=== PATIENT | female | born 1945 | race Caucasian/White ===

== ENCOUNTER 2024-04-07 14:16 | Emergency (ER) | payer OTHER, SELFPAY ==
[2024-04-07] VITALS (15 sets, daily range): BP systolic 109–150; BP diastolic 56–82; PULSE 50–75; RESP 15–28; O2SAT 95–98; BMI 33.6
--- NOTE | 2024-04-07 14:30 | EKG_ITS ---
[facility] [address] [address] Test Date: 2024-04-07 Pat Name: Rose Mir Department: Room: Gender: Female [employer] In [employer]er: : 1945 Requested By: Order Number: [id number] Reading MD: Earle Garcia Measurements Intervals [place] Rate: 51 P: 38 SD: 118 QRS: -15 QRSD: 86 T: -5 QT: 488 QTc: 449 Interpretive Statements Sinus bradycardia Minimal voltage criteria for LVH, may be normal variant ( R in aVL ) Electronically Signed On 04-14-2024 18:48:13 PST by Earle Garcia
--- NOTE | 2024-04-07 14:57 | DI.RAD.S_ITS ---
PROCEDURE: XR CHEST 1V INDICATIONS: chest pain TECHNIQUE: One view of the chest was acquired. COMPARISON: [facility], , CHEST 1 VIEW, 06/20/2017, 12:13. FINDINGS: Surgical changes and devices: None. Lungs and pleura: Lungs are clear. No pleural effusions or pneumothorax. Mediastinum: Mediastinal contours appear normal. Heart size is normal. Bones and chest wall: No suspicious bony lesions. Age-appropriate bony degenerative changes are seen. Overlying soft tissues appear unremarkable. IMPRESSION: Portable chest within normal limits for age. Dictated by: Telly Yu M.D. on 04/07/2024 at 14:34 Approved by: Telly Yu M.D. on 04/07/2024 at 14:35
[2024-04-07 15:25] LABS: Prothrombin Time 11.6 SECONDS (9.4-12.5)
[2024-04-07 15:28] LABS: PTT Partial Thromboplastin Tim 26 SECONDS (25.1-36.5)
[2024-04-07 15:29] LABS: Add Manual Diff / Slide Review NO; Basophils Absolute Auto 0 /uL (0-100); Basophils Percent Auto 0.4 % (0-2); Eosinophils Absolute Auto 100 /uL (0-450); Eosinophils Percent Auto 1.3 % (2-4); Hematocrit 37.7 % (36-46); Hemoglobin 12.9 g/dL (12.0-16.0); Lymphocytes Absolute Auto 1600 /uL (1100-4500); Lymphocytes Percent Auto 27.8 % (25-40); Mean Corpuscular HGB Conc 34.1 % (30-36); Mean Corpuscular Hemoglobin 29.3 PG (26-34); Monocytes Absolute Auto 600 /uL (0-900); Monocytes Percent Auto 9.9 % (3-14); Neutrophils Absolute Auto 3400 /uL (1500-7000); Neutrophils Percent Auto 60.6 % (50-75); Platelet Count 247 X10^3/uL (150-400); Red Blood Cell Count 4.39 X10^6/uL (4.0-5.2); Red Cell Distribution Width 13.6 % (11.6-14.8); White Blood Cell Count 5.6 X10^3/uL (4.5-11.0)
[2024-04-07 15:34] LABS: Alanine Aminotransferase 16 IU/L (<35); Albumin 3.9 g/dL (3.5-5.0); Albumin Globulin Ratio 1.6 (1.0-2.8); Alkaline Phosphatase 62 U/L (38-126); Aspartate Aminotransferase 21 IU/L (14-36); BUN Creatinine Ratio 21.4 (6-22); Bilirubin Total 0.4 mg/dL (0.2-1.3); Blood Urea Nitrogen 15 mg/dL (7-17); Calcium 8.6 mg/dL (8.4-10.2); Carbon Dioxide 28 mmol/L (22-32); Chloride 101 mmol/L (98-107); Creatine Kinase 33 U/L (30-135); Estimated Glomerular Filt Rate > 60 mL/min (>60); Globulin 2.4 g/dL (1.7-4.1); Glucose 91 mg/dL (80-110); HEMOLYSIS < 15 (0-50); Lipase 113 U/L (23-300); Potassium 3.2 mmol/L (3.4-5.1); Sodium 134 mmol/L (137-145); Total Protein 6.3 g/dL (6.3-8.2)
[2024-04-07 15:45] LABS: NT-proBNP (BNP-Adult 18+) 269 pg/mL (<450); Troponin I < 0.012 ng/mL (0.01-0.034)
--- NOTE | 2024-04-07 16:44 | EKG_ITS ---
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
[2024-04-07 17:22] LABS: Troponin I < 0.012 ng/mL (0.01-0.034)
--- NOTE | 2024-04-07 18:53 | ED.CHESTPAIN ---
HPI - Chest Pain General Chief Complaint: Chest Pain Stated Complaint: 7/10 CP Time Seen by Provider: 04/07/24 18:02 Source: patient and EMS Mode of arrival: EMS Limitations: no limitations History of Present Illness HPI narrative: Patient is a 78-year-old female with a history of anxiety who presents to the emergency department for evaluation of chest discomfort. 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 It did radiate to both sides of her jaw. When EMS was called she did get a dose of aspirin and nitro. At the time of my exam she was asymptomatic. States she has had symptoms just like this in the past. Has had a workup in the past for these symptoms. Has had a stress test. Was told that everything was okay with her heart and that this was anxiety. Stated that she was not particularly feeling anxious at the time of the event today. No shortness of breath. No abdominal pain or nausea vomiting. No lower extremity swelling. Related Data Home Medications Medication Instructions Recorded Confirmed alprazolam 0.25 mg tablet 0.25 mg PO Q8HP PRN ##0 06/20/17 aspirin 81 mg tablet,delayed 81 mg PO QDAY ##0 06/20/17 release atenolol 50 mg tablet 25 mg PO QDAY ##0 06/20/17 citalopram 10 mg tablet 10 mg PO QDAY ##0 06/20/17 estradiol 1 mg tablet (Estrace) 1 mg PO QDAY ##0 06/20/17 hydrochlorothiazide 12.5 mg capsule 12.5 mg PO QDAY ##0 06/20/17 loratadine 10 mg capsule (Claritin 10 mg PO QDAYP PRN ##0 06/20/17 Liqui-Gel) simvastatin 40 mg tablet 40 mg PO QDAY ##0 06/20/17 Allergies Allergy/AdvReac Type Severity Reaction Status Date / Time Sulfa (Sulfonamide Allergy Intermediate HIVES Unverified 09/18/17 11:51 Antibiotics) [SULFA (SULFONAMIDE ANTIBIOTICS)] Penicillins [PENICILLINS] Allergy Unknown Unverified 09/18/17 11:51 Review of Systems Review of Systems ROS Unobtainable: All systems reviewed & are unremarkable except as noted in HPI and below Patient History Social History Smoking Status: Never smoker Smoking Status: Never smoker Substance Use Type: does not use Exam Initial Vital Signs Initial Vital Signs: Vital Signs Pulse Rate 60 04/07/24 14:15 Respiratory Rate 18 04/07/24 14:15 Blood Pressure 130/75 04/07/24 14:15 Pulse Oximetry 98 04/07/24 14:15 Oxygen Delivery Method Room Air 04/07/24 14:15 Const General: cooperative, comfortable and No ill appearing HENMT Head: normal to inspection and normocephalic Resp Effort & Inspection: normal respiratory effort Auscultation: clear to auscultation bilaterally Cardio Rate: regular rate Rhythm: regular rhythm GI Inspection: normal to inspection and non-distended Skin General: no rashes or lesions noted Neuro General: patient alert, patient awake, patient oriented x3 and moves all extremities Extrem General: No edema Scores GCS [place] coma scale eye opening: Spontaneous Xu coma scale verbal response: Orientated Xu coma scale motor response: Obey commands Xu coma scale total score: 15 Course Orders Ordered: ED Orders 04/07/24 16:39 EKG-12 Lead Stat 04/07/24 16:46 Troponin I Stat Vital Signs Vital signs: Vital Signs - 8 hr 04/07/24 17:00 04/07/24 17:00 04/07/24 17:30 Pulse Rate 70 Respiratory Rate 19 Blood Pressure 142/72 H 148/68 H Pulse Oximetry 96 04/07/24 17:30 04/07/24 18:00 04/07/24 18:01 Pulse Rate 56 L 55 L 54 L Respiratory Rate 23 26 H 26 H Blood Pressure Pulse Oximetry 98 96 97 04/07/24 18:01 04/07/24 18:30 04/07/24 18:30 Pulse Rate 54 L Respiratory Rate 28 H Blood Pressure 150/66 H 143/69 H Pulse Oximetry 97 MDM - Chest Pain Lab Data Attestation: I reviewed the patient's lab results. 04/07/24 14:25 04/07/24 14:25 Labs: Lab Results 04/07/24 04/07/24 Range/Units 14:25 16:46 WBC 5.6 (4.5-11.0) X10^3/uL RBC 4.39 (4.0-5.2) X10^6/uL Hgb 12.9 (12.0-16.0) g/dL Hct 37.7 (36-46) % MCV 86.0 (80-100) fL MCH 29.3 (26-34) PG MCHC 34.1 (30-36) % RDW 13.6 (11.6-14.8) % Plt Count 247 (150-400) X10^3/uL Neut % (Auto) 60.6 (50-75) % Lymph % (Auto) 27.8 (25-40) % [place] % (Auto) 9.9 (3-14) % Eos % (Auto) 1.3 L (2-4) % Baso % (Auto) 0.4 (0-2) % Neut # (Auto) 3400 (6424-9659) /uL Lymph # (Auto) 1600 (0380-8316) /uL [place] # (Auto) 600 (0-900) /uL Eos # (Auto) 100 (0-450) /uL Baso # (Auto) 0 (0-100) /uL PT 11.6 (9.4-12.5) SECONDS INR 1.0 (0.9-1.3) APTT 26 (25.1-36.5) SECONDS Sodium 134 L (137-145) mmol/L Potassium 3.2 L (3.4-5.1) mmol/L Chloride 101 (98-107) mmol/L Carbon Dioxide 28 (22-32) mmol/L BUN 15 (7-17) mg/dL Creatinine 0.70 (0.52-1.04) mg/dL Estimated GFR > 60 (>60) mL/min BUN/Creatinine Ratio 21.4 (6-22) Glucose 91 (80-110) mg/dL Calcium 8.6 (8.4-10.2) mg/dL Magnesium 2.0 (1.6-2.3) mg/dL Total Bilirubin 0.4 (0.2-1.3) mg/dL AST 21 (14-36) IU/L ALT 16 (<35) IU/L Alkaline Phosphatase 62 (38-126) U/L Total Creatine Kinase 33 (30-135) U/L Troponin I < 0.012 < 0.012 (0.01-0.034) ng/mL NT-Pro-B Natriuret Pep 269 (<450) pg/mL Total Protein 6.3 (6.3-8.2) g/dL Albumin 3.9 (3.5-5.0) g/dL Globulin 2.4 (1.7-4.1) g/dL Albumin/Globulin Ratio 1.6 (1.0-2.8) Lipase 113 (23-300) U/L Imaging Data Chest x-ray: Radiologist's Impression: PROCEDURE: XR CHEST 1V INDICATIONS: chest pain TECHNIQUE: One view of the chest was acquired. COMPARISON: [facility], CHEST 1 VIEW, 06/20/2017, 12:13. FINDINGS: Surgical changes and devices: None. Lungs and pleura: Lungs are clear. No pleural effusions or pneumothorax. Mediastinum: Mediastinal contours appear normal. Heart size is normal. Bones and chest wall: No suspicious bony lesions. Age-appropriate bony degenerative changes are seen. Overlying soft tissues appear unremarkable. IMPRESSION: Portable chest within normal limits for age. ECG Data Attestation: I personally reviewed and interpreted this ECG as follows: Interpretation: Sinus bradycardia Ventricular rate of 51 Normal QRS Normal QTC No ST T wave changes Repeat EKG Sinus rhythm Ventricular rate is 72 Normal QRS Normal QTC No ST T wave changes MDM Narrative Medical decision making narrative: At the time of my exam patient is asymptomatic. She states she has had discomfort just like this in the past in his head a workup to include a stress test. She was told that it was anxiety. She has a nonischemic EKG. 2- troponins. Chest x-ray is unremarkable. Patient states she would like to go home. She understands the possibility that this is anxiety but also the possibility that this is related to her heart. She stated that she will contact her primary care doctor for a follow-up. And I recommended that she do so. She was given return precautions. She expressed understanding and agreement with the plan. Discharge Plan Departure Patient Disposition: Home Clinical Impression: Atypical chest pain Instructions: DI for Atypical Chest Pain Activity Restrictions/Additional Instructions: Recommend that you continue to take all of your medications as directed. Contact your primary care doctor for a follow-up to discuss the indications for further testing. Return to the emergency department for new or worsening symptoms like we discussed. Prescriptions: No Action aspirin 81 MG tablet,delayed release (DR/EC) 81 mg PO QDAY Qty: 0 estradiol [Estrace] 1 MG tablet 1 mg PO QDAY Qty: 0 alprazolam 0.25 MG tablet 0.25 mg PO Q8HP PRNQty: 0 atenolol 50 MG tablet 25 mg PO QDAY Qty: 0 hydrochlorothiazide 12.5 MG capsule 12.5 mg PO QDAY Qty: 0 simvastatin 40 MG tablet 40 mg PO QDAY Qty: 0 loratadine [Claritin Liqui-Gel] 10 MG capsule 10 mg PO QDAYP PRNQty: 0 citalopram 10 MG tablet 10 mg PO QDAY Qty: 0 Referrals: Murali Potts MD [Primary Care Provider] - Stand Alone Forms: Patient Portal/API/Survey
== END 2024-04-07 18:59 | disposition home or self-care (01) ==
PROVIDERS: Emergency Medicine; Emergency Provider Emergency Medicine; PCP Family Medicine
DX: R07.89 Other chest pain (principal); R00.1 Bradycardia, unspecified
CPT/HCPCS: 36415; 71045; 80053; 82550; 83690; 83735; 83880; 84484; 85025; 85610; 85730; 93005; 99283; 99284